=== PATIENT | female | born 1980 ===

== ENCOUNTER 2020-05-17 16:21 | Emergency (ER) | payer OTHER ==
--- NOTE | 2020-05-17 16:40 | EDM.PDOC ---
ED HPI GENERAL MEDICAL PROBLEM - General Chief Complaint: Chest Pain Stated Complaint: [facility] Time Seen by Provider: 05/17/20 16:29 Source of Information: Reports: Patient History Limitations: Reports: No Limitations - History of Present Illness INITIAL COMMENTS - FREE TEXT/NARRATIVE: Patient is a 39-year-old female who presents today for left-sided chest pain that started earlier. Patient that she has some radiation to her jaw as well as her left arm. Patient states that the pain got worse with a deep breath but nothing made the pain better. Patient did take aspirin at home as well. Patient denies any cough fever chills. Patient denies any leg swelling. Patient denies any other complaints. Chest/Headache Pain Score (Numeric/FACES): 5 - Related Data Allergies Allergy/AdvReac Type Severity Reaction Status Date / Time No Known Allergies Allergy Verified 05/17/20 16:37 Home Meds: Home Meds . [No Known Home Meds] 05/17/20 [History] ED ROS GENERAL - Review of Systems Review Of Systems: See Below Constitutional: Reports: No Symptoms HEENT: Reports: No Symptoms Respiratory: Reports: No Symptoms Cardiovascular: Reports: Chest Pain Endocrine: Reports: No Symptoms GI/Abdominal: Reports: No Symptoms : Reports: No Symptoms Musculoskeletal: Reports: No Symptoms Skin: Reports: No Symptoms Neurological: Reports: No Symptoms Psychiatric: Reports: No Symptoms Hematologic/Lymphatic: Reports: No Symptoms Immunologic: Reports: No Symptoms ED EXAM, GENERAL - Physical Exam Exam: See Below Exam Limited By: No Limitations General Appearance: Alert, WD/WN, No Apparent Distress Eye Exam: Bilateral Eye: EOMI, PERRL Respiratory/Chest: No Respiratory Distress, Lungs Clear, Normal Breath Sounds Cardiovascular: Normal Peripheral Pulses, Regular Rate, Rhythm GI/Abdominal: Normal Bowel Sounds, Soft, Non-Tender Extremities: Normal Inspection, Normal Range of Motion Neurological: Alert, Oriented, Normal Cognition, Normal Gait #1 Interpretation EKG Date: 05/17/20 Time: 16:30 Rhythm: NSR Rate (Beats/Min): 76 ST-T: Normal Course - Vital Signs Last Recorded V/S: Last Vital Signs Temp 97.9 F 05/17/20 16:38 Pulse 86 05/17/20 16:38 Resp 18 05/17/20 16:38 BP 148/85 H 03/17/21 16:38 Pulse Ox 98 05/17/20 16:38 - Orders/Labs/Meds Orders: Active Orders 24 hr Category Date Time Status EKG 12 Lead [EKG Documentation Completion] [RC] STAT Care 05/17/20 16:39 Active Labs: Laboratory Tests 05/17/20 05/17/20 05/17/20 Range/Units 16:30 16:30 16:45 WBC 11.29 H (4.0-11.0) K/uL RBC 4.03 L (4.30-5.90) M/uL Hgb 13.6 (12.0-16.0) g/dL Hct 40.5 (36.0-46.0) % MCV 100.5 H (80.0-98.0) fL MCH 33.7 H (27.0-32.0) pg MCHC 33.6 (31.0-37.0) g/dL RDW Std Deviation 46.6 (28.0-62.0) fl RDW Coeff of Chacha 13 (11.0-15.0) % Plt Count 331 (150-400) K/uL MPV 9.40 (7.40-12.00) fL Neut % (Auto) 79.5 (48.0-80.0) % Lymph % (Auto) 14.6 L (16.0-40.0) % Christian % (Auto) 5.2 (0.0-15.0) % Eos % (Auto) 0.4 (0.0-7.0) % Baso % (Auto) 0.3 (0.0-1.5) % Neut # (Auto) 9.0 H (1.4-5.7) K/uL Lymph # (Auto) 1.7 (0.6-2.4) K/uL Christian # (Auto) 0.6 (0.0-0.8) K/uL Eos # (Auto) 0.0 (0.0-0.7) K/uL Baso # (Auto) 0.0 (0.0-0.1) K/uL Nucleated RBC % 0.0 /100WBC Nucleated RBCs # 0 K/uL Sodium 136 (136-145) mmol/L Potassium 3.5 (3.5-5.1) mmol/L Chloride 101 (98-107) mmol/L Carbon Dioxide 22.4 (21.0-32.0) mmol/L BUN 10 (7.0-18.0) mg/dL Creatinine 1.0 (0.6-1.0) mg/dL Est Cr Clr Drug Dosing 67.96 mL/min Estimated GFR (MDRD) > 60.0 ml/min Glucose 107 H (74-106) mg/dL Calcium 9.2 (8.5-10.1) mg/dL Total Bilirubin 0.7 (0.2-1.0) mg/dL AST 38 H (15-37) IU/L ALT 38 (14-63) IU/L Alkaline Phosphatase 99 (46-116) U/L Creatine Kinase 149 (26-308) U/L Troponin I < 0.050 (0.000-0.056) ng/mL Total Protein 8.2 (6.4-8.2) g/dL Albumin 3.8 (3.4-5.0) g/dL Globulin 4.4 H (2.6-4.0) g/dL Albumin/Globulin Ratio 0.9 (0.9-1.6) Urine HCG, Qual NEGATIVE (NEGATIVE) - Re-Assessments/Exams Free Text/Narrative Re-Assessment/Exam: 05/17/20 18:25 Patient is chest pain-free troponins review EKG labs. Patient will be discharged home has a follow-up appoint with her PMD this week. Departure - Departure Time of Disposition: 18:25 Disposition: Home, Self-Care 01 Condition: Good Clinical Impression: Chest pain Instructions: Nonspecific Chest Pain, Adult, [id number] Referrals: PCP,Unobtain [Primary Care Provider] - Forms: ED Department Discharge Additional Instructions: The following information is given to patients seen in the emergency department who are being discharged to home. This information is to outline your options for follow-up care. We provide all patients seen in our emergency department with a follow-up referral. The need for follow-up, as well as the timing and circumstances, are variable depending upon the specifics of your emergency department visit. If you don't have a primary care physician on staff, we will provide you with a referral. We always advise you to contact your personal physician following an emergency department visit to inform them of the circumstance of the visit and for follow-up with them and/or the need for any referrals to a consulting specialist. The emergency department will also refer you to a specialist when appropriate. This referral assures that you have the opportunity for follow-up care with a specialist. All of these measure are taken in an effort to provide you with optimal care, which includes your follow-up. Under all circumstances we always encourage you to contact your private physician who remains a resource for coordinating your care. When calling for follow-up care, please make the office aware that this follow-up is from your recent emergency room visit. If for any reason you are refused follow-up, please contact the [facility] Emergency Department at and asked to speak to the emergency department charge nurse. Please follow up with your primary care physician. If you do not have a primary care physician, see below: [facility] [address] [place] [id number] My [facility] [address] [place] [id number] Please continue to follow-up with your PMD as you have schedule appointment. If you have any increased chest pain and or shortness of breath please return to the ED immediately. Sepsis Event Note (ED) - Focused Exam Vital Signs: Vital Signs Temp Pulse Resp BP Pulse Ox 05/17/20 16:38 97.9 F 86 18 148/85 H 98 - My Orders Last 24 Hours: My Active Orders 05/17/20 16:39 EKG 12 Lead [EKG Documentation Completion] [RC] STAT - Assessment/Plan Last 24 Hours: My Active Orders 05/17/20 16:39 EKG 12 Lead [EKG Documentation Completion] [RC] STAT Plan: Patient is a 39-year-old female who presents today for left-sided chest pain that radiated to her jaw and arm. Patient unlikely to have DVT and PERC out patient heart score of 0 and will obtain labs EKG and x-ray
[2020-05-17 17:18] LABS: BLOOD UREA NITROGEN,BUN 10 mg/dL (7.0-18.0); CARBON DIOXIDE,CO2 22.4 mmol/L (21.0-32.0); CHLORIDE,CL 101 mmol/L (98-107); GLUCOSE RANDOM 107 mg/dL (74-106); POTASSIUM,K 3.5 mmol/L (3.5-5.1); SODIUM,NA 136 mmol/L (136-145)
--- NOTE | 2020-05-17 18:04 | CR ---
INDICATION: Left sided chest pain TECHNIQUE: Chest radiograph 2 views COMPARISON: 12/30/2011 FINDINGS: Mediastinum: The mediastinum is normal in appearance. The heart silhouette is normal in size and morphology. Lung: Both lungs are unremarkable in appearance. No sign of pleural effusion seen. No pneumothorax is identified. Bone and Soft tissue: Unremarkable for age. IMPRESSION: 1. No acute cardiopulmonary disease is seen. Dictated by: Arjun Hyde MD @ 05/17/2020 18:02:46 (Electronically Signed)
== END 2020-05-17 18:32 | disposition home or self-care (01) ==
LOC: MW.ED 16:21
DX: R07.9 Chest pain, unspecified (principal)
CPT/HCPCS: 36415; 71046; 71046-26; 80053; 81025; 82550; 84484; 85025; 93005; 93010; 99283; 99285-25

== ENCOUNTER 2020-09-12 07:32 | Day surgery (SDC) | payer BC, OTHER ==
[~2020-09-12 07:32] MED LIST: Lactated Ringers 1,000 ML IV SCH; Lidocaine 2% 5 ML SDV ONE; Ondansetron 4 MG/2 ML SDV ONE; Sodium Chloride 0.9% 10 ML SDV IV PRN; Sodium Chloride 0.9% 10 ML Syringe FLUSH PRN; Sodium Chloride 0.9% 2.5 ML Syringe FLUSH PRN; fentaNYL 100 MCG/2 ML SDV ONE; propofoL 100 ML ONE
--- NOTE | 2020-09-12 08:29 | PCM.PREANE ---
Preanesthetic Assessment - Anesthesia/Transfusion/Family Hx Anesthesia History: Prior Anesthesia Without Reaction Family History of Anesthesia Reaction: No Transfusion History: No Prior Transfusion(s) - Review of Systems General: No Symptoms Pulmonary: No Symptoms Cardiovascular: No Symptoms Gastrointestinal: No Symptoms Neurological: No Symptoms Other: Reports: None - Physical Assessment NPO Status Date: 09/12/20 NPO Status Time: 00:00 Vital Signs: Last Vital Signs Temp 97.0 F 09/12/20 08:13 Pulse 70 09/12/20 08:13 Resp 16 09/12/20 08:13 BP 117/74 09/12/20 08:13 Pulse Ox 96 09/12/20 08:13 Height: 5 ft 5 in Weight: 199 lb ASA Class: 2 Mental Status: Alert & Oriented x3 Airway Class: Mallampati = 2 Dentition: Reports: Normal Dentition ROM/Head Extension: Full Lungs: Clear to Auscultation, Normal Respiratory Effort Cardiovascular: Regular Rate, Regular Rhythm - Lab Values: Laboratory Last Values Urine HCG, Qual NEGATIVE (NEGATIVE) 09/12/20 07:45 - Allergies Allergies/Adverse Reactions: Allergies Allergy/AdvReac Type Severity Reaction Status Date / Time No Known Allergies Allergy Verified 09/12/20 08:12 - Blood Blood Available: No - Acknowledgements Anesthesia Type Planned: General Anesthesia Pt an Appropriate Candidate for the Planned Anesthesia: Yes Alternatives and Risks of Anesthesia Discussed w Pt/Guardian: Yes Pt/Guardian Understands and Agrees with Anesthesia Plan: Yes PreAnesthesia Questionnaire - Past Health History Medical/Surgical History: Denies Medical/Surgical History HEENT History: Reports: Other (See Below) Other HEENT History: wears glasses Cardiovascular History: Reports: None Respiratory History: Reports: None Gastrointestinal History: Reports: GERD, Helicobacter Pylori Genitourinary History: Reports: None CRAY FISHING HAND History: Reports: Musculoskeletal History: Reports: Fracture Other Musculoskeletal History: hx fx wrist and leg Neurological History: Reports: None Psychiatric History: Reports: OCD Endocrine/Metabolic History: Reports: Obesity/BMI 30+ Other Endocrine/Metabolic History: "hypothyroidism years ago", no longer on medication Hematologic History: Reports: None Immunologic History: Reports: None Oncologic (Cancer) History: Reports: None Dermatologic History: Reports: None - Past Surgical History Head Surgeries/Procedures: Reports: None HEENT Surgical History: Reports: None Cardiovascular Surgical History: Reports: None Respiratory Surgical History: Reports: None GI Surgical History: Reports: Appendectomy Female Surgical History: Reports: Tubal Ligation Endocrine Surgical History: Reports: None Neurological Surgical History: Reports: None Musculoskeletal Surgical History: Reports: None Oncologic Surgical History: Reports: None Dermatological Surgical History: Reports: None - SUBSTANCE USE Tobacco Use Status *Q: Never Tobacco User - HOME MEDS Home Medications: Home Meds Ergocalciferol (Vitamin D2) [Vitamin D2] 50,000 units PO WEEKLY 09/07/20 [History] - CURRENT (IN HOUSE) MEDS Current Meds: Current Medications Lactated Ringer's (Ringers, Lactated) 1,000 mls @ 125 mls/hr IV ASDIRECTED [place] Last Admin: 09/12/20 08:11 Dose: 125 mls/hr Documented by: Sodium Chloride (Sodium Chloride 0.9% 10 Ml Syringe) 10 ml FLUSH ASDIRECTED PRN PRN Reason: Keep Vein Open Sodium Chloride (Sodium Chloride 0.9% 2.5 Ml Syringe) 2.5 ml FLUSH ASDIRECTED PRN PRN Reason: Keep Vein Open Sodium Chloride (Sodium Chloride 0.9% 10 Ml Syringe) 10 ml FLUSH ASDIRECTED PRN PRN Reason: Keep Vein Open Sodium Chloride (Sodium Chloride 0.9% 2.5 Ml Syringe) 2.5 ml FLUSH ASDIRECTED PRN PRN Reason: Keep Vein Open Sodium Chloride (Sodium Chloride 0.9% 10 Ml Sdv) 10 ml IV ASDIRECTED PRN PRN Reason: IV Use Discontinued Medications Fentanyl (Fentanyl 100 Mcg/2 Ml Sdv) Confirm Administered Dose 100 mcg .ROUTE .STK-MED ONE Stop: 09/12/20 06:51 Lactated Ringer's (Ringers, Lactated) 1,000 mls @ 125 mls/hr IV ASDIRECTED [place] Propofol (Diprivan 100 Ml) Confirm Administered Dose 100 mls @ as directed .ROUTE .STK-MED ONE Stop: 09/12/20 07:06 Lidocaine (Lidocaine 2% 5 Ml Sdv) Confirm Administered Dose 5 ml .ROUTE .STK-MED ONE Stop: 09/12/20 06:51 Miscellaneous Medication (Phenylephrine Hcl In 0.9% Nacl 1 Mg/10 Ml Syringe) Confirm Administered Dose 1 mg .ROUTE .STK-MED ONE Stop: 09/12/20 07:41 Ondansetron HCl (Ondansetron 4 Mg/2 Ml Sdv) Confirm Administered Dose 4 mg .ROUTE .[facility] ONE Stop: 09/12/20 06:51
[2020-09-12] MEDS ORDERED: Glycopyrrolate 0.2 MG/ML SDV ONE (09:31)
--- NOTE | 2020-09-12 09:57 | PCM48HPAN ---
Post Anesthesia Note - EVALUATION WITHIN 48HRS OF ANESTHETIC Vital Signs in Normal Range: Yes Patient Participated in Evaluation: Yes Respiratory Function Stable: Yes Airway Patent: Yes Cardiovascular Function Stable: Yes Hydration Status Stable: Yes Pain Control Satisfactory: Yes Nausea and Vomiting Control Satisfactory: Yes Mental Status Recovered: Yes Vital Signs: Last Vital Signs Temp 97.0 F 09/12/20 08:13 Pulse 70 09/12/20 08:13 Resp 16 09/12/20 08:13 BP 117/74 09/12/20 08:13 Pulse Ox 96 09/12/20 08:13
--- NOTE | 2020-09-12 09:57 | PCM.POSTAN ---
POST ANESTHESIA ASSESSMENT - MENTAL STATUS Mental Status: Alert, Oriented - VITAL SIGNS Vital Signs: Last Vital Signs Temp 97.0 F 09/12/20 08:13 Pulse 70 09/12/20 08:13 Resp 16 09/12/20 08:13 BP 117/74 09/12/20 08:13 Pulse Ox 96 09/12/20 08:13 - RESPIRATORY Respiratory Status: Respiratory Rate WNL, Airway Patent, O2 Saturation Stable - CARDIOVASCULAR CV Status: Pulse Rate WNL, Blood Pressure Stable - GASTROINTESTINAL GI Status: No Symptoms - POST OP HYDRATION Hydration Status: Adequate & Stable
--- NOTE | 2020-09-12 09:58 | PCM.OPNOTE ---
- General Post-Op/Procedure Note Date of Surgery/Procedure: 09/12/20 Operative Procedure(s): Diagnostic EGD and colonoscopy Findings: Hyperplastic gastric polyps, grade IV hemorrhoids, ascending colon polyp Pre Op Diagnosis: Change in bowel habits, history of H pylori Post-Op Diagnosis: Hyperplastic gastric polyps, grade IV hemorrhoids, ascending colon polyp Anesthesia Technique: [facility] Primary Surgeon: Sera Parra Condition: Good
--- NOTE | 2020-09-13 20:20 | OR ---
SURGEON: SERA PARRA MD DATE OF PROCEDURE: 09/12/2020 PREOPERATIVE DIAGNOSES: History of Helicobacter pylori, change in bowel habits. POSTOPERATIVE DIAGNOSES: 1. Hyperplastic gastric polyps. 2. Ascending colon polyp. 3. Grade 4 hemorrhoids. PROCEDURE PERFORMED: Diagnostic esophagogastroduodenoscopy and colonoscopy. PRIMARY SURGEON: Sera Parra MD ANESTHESIA: MAC. INSTRUMENTS USED: Olympus endoscope and colonoscope. EXTENT OF EXAM: To the second portion of duodenum, to the cecum. PREPARATION: Good. LIMITATIONS: None. INDICATIONS FOR EXAMINATION: The patient is a 40-year-old female who recently was diagnosed with H pylori. She was treated for it, but ever since then has had changes in her bowel habits. I explained the need for diagnostic EGD and colonoscopy. I explained the procedures, expected perioperative course, and the risks. She verbalized understanding and wishes to proceed. PROCEDURE IN DETAIL: The patient was brought in to the endoscopy suite and placed in the left lateral decubitus position. A time-out was completed verifying the patient's name, age, date of , allergies, and procedure to be performed. Monitored anesthesia care was induced and a bite block was placed in the patient's mouth. Continuous oxygen was provided via face mask throughout the procedure. After adequate sedation was achieved, a well-lubricated endoscope was placed in the patient's mouth and advanced under direct visualization to the second portion of the duodenum. This appeared normal and a photograph was taken. The scope was then fully withdrawn while examining the color, texture, anatomy, and integrity of the upper GI tract. The duodenum appeared normal and a photograph of this was taken. A biopsy was taken within the duodenal bulb and sent to Pathology. The stomach appeared normal overall. A photograph was taken of the pylorus and GE junction. The patient did have several scattered hyperplastic-appearing polyps within the body of the stomach. One of these was removed and sent to Pathology, labeled as gastric polyp. Random biopsies were taken of the antrum, body, and fundus of the stomach and sent for histologic review and H pylori testing. The scope was brought into the distal esophagus. A photograph was taken of the Z- line. The esophagus appeared normal. A biopsy was taken of the distal esophagus and sent to Pathology. The scope was removed and this portion of the procedure terminated. A digital rectal exam was performed. This revealed grade 4 hemorrhoids. A well-lubricated colonoscope was inserted per rectum and advanced under direct visualization to the level of the cecum. Cecum was identified by both visual and anatomic landmarks. I was able to closely inspect the terminal ileum which appeared to be normal. A photograph of these was taken. The scope was then fully withdrawn while examining the color, texture, anatomy, and integrity of the mucosa from the cecum to the anal canal. The patient had a small sessile polyp within the ascending colon. This was removed and sent to Pathology. Random biopsies were taken of the cecum, ascending colon, transverse colon, descending colon, sigmoid colon, and rectum and sent for histologic review. The scope was brought into the rectum and retroflexed to allow visualization of the anal canal opening. This appeared normal and a photograph was taken. The scope was then straightened out and fully withdrawn. The cecum to anus time was 10 minutes. The patient tolerated the procedure well and was transferred to the PACU in stable condition. ENDOSCOPIC DIAGNOSES: 1. Hyperplastic gastric polyps. 2. Ascending colon polyp. 3. Grade 4 hemorrhoids. RECOMMENDATION: Follow up in clinic in two weeks. MARTELL MCCONNELL /[id number]
== END 2020-09-12 10:35 | disposition home or self-care (01) ==
LOC: MW.SDS 07:32
PROVIDERS: ATTEND Surgery
DX: D12.2 Benign neoplasm of ascending colon (principal); K64.3 Fourth degree hemorrhoids; K31.7 Polyp of stomach and duodenum; E03.9 Hypothyroidism, unspecified; E66.9 Obesity, unspecified; K21.9 Gastro-esophageal reflux disease without esophagitis; Z90.49 Acquired absence of other specified parts of digestive tract; Z87.891 Personal history of nicotine dependence; Z68.33 Body mass index [BMI] 33.0-33.9, adult
CPT/HCPCS: 43239; 45380; 81025; 88305; 88342; J2370; J2405; J2704; J3010; J3490; J7120; 00813